=== PATIENT | male | born 1985 | race Caucasian/White ===

== ENCOUNTER 2020-07-13 14:10 | Inpatient (IN) ==
[2020-07-13] MEDS ORDERED: Isovue-370 500 ML BOTTLE IVP ONE (14:17)
[2020-07-13] MEDS ORDERED: 0.9 % Sodium Chloride 1,000 ML IVC ONE (14:18)
[2020-07-13 14:44] LABS: Basophils # 0.1 K/mcL (0.0-0.2); Basophils % 0.4 %; Eosinophils # 0.1 K/mcL (0.0-0.6); Eosinophils % 0.9 %; Hemoglobin 10.9 g/dL (12.9-16.9); Immature Granulocytes % 0.7 % (0-4); Lymphocytes # 1.8 K/mcL (0.6-4.6); Lymphocytes % 12.5 %; Mean Corpuscular Volume 81.7 fL (83.0-100.0); Mean Platelet Volume 9.3 fL (9.4-12.4); Monocytes # 1.1 K/mcL (0.0-1.3); Monocytes % 7.5 %; Neutrophils # 11.2 K/mcL (1.6-8.9); Nucleated Red Blood Cells 0.3 /100 WBC (0); Platelet Count 474 K/mcL (140-400); Red Blood Count 4.04 M/mcL (4.19-5.50); Red Cell Distribution Width 14.1 % (11.5-14.5); White Blood Count 14.3 K/mcL (4.3-11.1)
[2020-07-13 14:58] LABS: Alanine Aminotransferase 38 Units/L (7-52); Albumin 3.6 g/dL (3.5-5.7); Albumin/Globulin Ratio 1.1 (1.1-2.2); Alkaline Phosphatase 122 Units/L (34-104); Aspartate Amino Transferase 43 Units/L (13-39); BUN/Creatinine Ratio 16 (6-26); Bilirubin,Direct 0.3 mg/dL (0.0-0.2); Bilirubin,Indirect 0.4 mg/dL (0.0-1.0); Bilirubin,Total 0.7 mg/dL (0.3-1.0); Blood Urea Nitrogen 14 mg/dL (6-20); Calcium 8.9 mg/dL (8.6-10.3); Carbon Dioxide 29 mEq/L (23-29); Chloride 96 mEq/L (98-107); Globulin 3.3 g/dL (2.4-3.5); Glucose 113 mg/dL (70-105); Osmolality,Calculated 283 (280-300); Potassium 3.5 mEq/L (3.5-5.1); Sodium 136 mEq/L (136-145); Total Protein 6.9 g/dL (6.4-8.9); eGFR For African Americans > 60 (> 60); eGFR For Non-African Americans > 60 (> 60)
[2020-07-13] MEDS ORDERED: Azithromycin 500 MG in 0.9 % Sodium Chloride 250 ML IVPB ONE (15:01)
[2020-07-13 15:04] LABS: Troponin I 0.05 ng/mL (< 0.04)
[2020-07-13 15:13] LABS: Activated Partial Thrombo Time 27.6 Seconds (26.0-36.0); INR 1.4; Prothrombin Time 16.3 Seconds (9.4-12.1)
[2020-07-13] MEDS ORDERED: methocarbamoL 500 MG TABLET PO PRN (16:27)
[2020-07-13] MEDS ORDERED: MOM Conc 10 ML UD.LIQ PO PRN (16:29)
[2020-07-13] MEDS ORDERED: Mag Hydrox/Al Hydrox/Simeth 30 ML UDC PO PRN (16:29)
[2020-07-13] MEDS ORDERED: Naloxone 0.4 MG/ML INJ IVP PRN (16:29)
[2020-07-13] MEDS ORDERED: Acetaminophen 325 MG TABLET PO PRN (16:29)
[2020-07-13] MEDS ORDERED: Ondansetron 4 MG/2 ML VIAL IVP PRN (16:29)
[2020-07-13] MEDS ORDERED: methylPREDNISolone 125 MG/2 ML VIAL IVP ONE (16:37)
[2020-07-13] MEDS: Nicotine 14 MG PATCH.TD24 TD SCH (19:49)
[2020-07-13] MEDS: Gabapentin 400 MG CAPSULE PO SCH ×2 (19:50→20:30)
[2020-07-13] MEDS: risperiDONE 1 MG TABLET PO SCH (20:33)
[2020-07-13] MEDS: *HR* OxyCODONE/APAP 5/325 TABLET PO PRN (20:34)
[2020-07-13 21:43] LABS: Adenovirus Not Detected (Not Detect); Bordetella Pertussis Not Detected (Not Detect); Chlamydophila pneumoniae Not Detected (Not Detect); Coronavirus 229E Not Detected (Not Detect); Coronavirus HKU1 Not Detected (Not Detect); Coronavirus NL63 Not Detected (Not Detect); Coronavirus OC43 Not Detected (Not Detect); Human Metapneumovirus Not Detected (Not Detect); Human Rhinovirus/Enterovirus Not Detected (Not Detect); Influenza A Subtype 2009 H1 Not Detected (Not Detect); Influenza B Not Detected (Not Detect); Mycoplasma pneumoniae Not Detected (Not Detect); Parainfluenza Virus 1 Not Detected (Not Detect); Parainfluenza Virus 2 Not Detected (Not Detect); Parainfluenza Virus 3 Not Detected (Not Detect); Parainfluenza Virus 4 Not Detected (Not Detect); Respiratory Syncytial Virus Not Detected (Not Detect); SARS-CoV-2 Not Detected (Not Detect)
[2020-07-13] MEDS ORDERED: Furosemide 40 MG/4 ML VIAL IVP ONE (23:02)
[2020-07-13] MEDS: MethylPREDNISolone 40 MG/ML VIAL IVP SCH (23:28)
[2020-07-14 07:28] LABS: Basophils % 0.2 %; Hematocrit 34.8 % (37.5-50.1); Hemoglobin 11.5 g/dL (12.9-16.9); Immature Granulocytes % 1.3 % (0-4); Lymphocytes # 0.9 K/mcL (0.6-4.6); Mean Corpuscular Volume 81.7 fL (83.0-100.0); Mean Platelet Volume 9.4 fL (9.4-12.4); Monocytes # 0.3 K/mcL (0.0-1.3); Monocytes % 2.5 %; Nucleated Red Blood Cells 0.4 /100 WBC (0); Platelet Count 528 K/mcL (140-400); Red Blood Count 4.26 M/mcL (4.19-5.50); White Blood Count 11.4 K/mcL (4.3-11.1)
[2020-07-14 07:38] LABS: BUN/Creatinine Ratio 20 (6-26); Blood Urea Nitrogen 14 mg/dL (6-20); Carbon Dioxide 26 mEq/L (23-29); Chloride 98 mEq/L (98-107); Glucose 123 mg/dL (70-105); Osmolality,Calculated 284 (280-300); Potassium 4.2 mEq/L (3.5-5.1); Sodium 136 mEq/L (136-145); eGFR For African Americans > 60 (> 60); eGFR For Non-African Americans > 60 (> 60)
[2020-07-14] MEDS: FLUoxetine 20 MG CAPSULE PO SCH (08:13)
[2020-07-14] MEDS: Nicotine 14 MG PATCH.TD24 TD SCH (08:13)
[2020-07-14] MEDS: MethylPREDNISolone 40 MG/ML VIAL IVP SCH ×2 (08:14→23:56)
[2020-07-14] MEDS: risperiDONE 1 MG TABLET PO SCH ×2 (08:14→19:56)
[2020-07-14] MEDS: Gabapentin 400 MG CAPSULE PO SCH ×3 (08:14→18:13)
[2020-07-14] MEDS: atenoloL 50 MG TABLET PO SCH (08:14)
[2020-07-14] MEDS: *HR* OxyCODONE/APAP 5/325 TABLET PO PRN ×2 (08:21→15:11)
[2020-07-14] MEDS: Furosemide 20 MG/2 ML VIAL IVP SCH ×2 (11:53→18:14)
[2020-07-14] MEDS ORDERED: MethylPREDNISolone 40 MG/ML VIAL IVP SCH (12:15)
[2020-07-14] MEDS: cefTRIAXone 2,000 MG in 0.9 % Sodium Chloride Mini Bag 100 ML IVPB SCH (15:10)
[2020-07-14] MEDS ORDERED: Azithromycin 500 MG in 0.9 % Sodium Chloride 250 ML IVPB SCH (16:00)
[2020-07-14] MEDS ORDERED: Saline Nasal Spray 44 ML BOTTLE NS PRN (19:08)
[2020-07-14] MEDS: ALPRAZolam 1 MG TABLET PO PRN (19:56)
[2020-07-15] MEDS: Gabapentin 400 MG CAPSULE PO SCH ×6 (00:14→21:10)
[2020-07-15] MEDS: *HR* Enoxaparin 40 MG/0.4 ML SYRINGE SQ SCH (05:45)
[2020-07-15] MEDS: *HR* OxyCODONE/APAP 5/325 TABLET PO PRN ×3 (05:52→19:00)
[2020-07-15 08:10] LABS: D-Dimer 1641 ng/mLFEU (0-500)
[2020-07-15 08:15] LABS: BUN/Creatinine Ratio 39 (6-26); Blood Urea Nitrogen 28 mg/dL (6-20); Calcium 9.2 mg/dL (8.6-10.3); Carbon Dioxide 27 mEq/L (23-29); Chloride 100 mEq/L (98-107); Glucose 143 mg/dL (70-105); Magnesium 2.3 mg/dL (1.6-2.6); Osmolality,Calculated 292 (280-300); Phosphorous 4.7 mg/dL (2.7-4.5); Potassium 4.3 mEq/L (3.5-5.1); Sodium 137 mEq/L (136-145); eGFR For African Americans > 60 (> 60); eGFR For Non-African Americans > 60 (> 60)
[2020-07-15 08:58] LABS: Lactate Dehydrogenase 493 Units/L (140-271)
[2020-07-15 09:14] LABS: Fibrinogen 853 mg/dL (169-393)
[2020-07-15 09:16] LABS: Ferritin 313 ng/mL (20-250)
[2020-07-15] MEDS: Furosemide 20 MG/2 ML VIAL IVP SCH (09:27)
[2020-07-15] MEDS: Nicotine 14 MG PATCH.TD24 TD SCH (09:42)
[2020-07-15] MEDS: FLUoxetine 20 MG CAPSULE PO SCH (09:43)
[2020-07-15] MEDS: risperiDONE 1 MG TABLET PO SCH ×2 (09:43→21:09)
[2020-07-15] MEDS: MethylPREDNISolone 40 MG/ML VIAL IVP SCH ×2 (09:43→16:59)
[2020-07-15] MEDS: atenoloL 50 MG TABLET PO SCH (09:44)
[2020-07-15] MEDS: ALPRAZolam 1 MG TABLET PO PRN (14:59)
[2020-07-15] MEDS: cefTRIAXone 2,000 MG in 0.9 % Sodium Chloride Mini Bag 100 ML IVPB SCH (17:02)
[2020-07-16] MEDS: MethylPREDNISolone 40 MG/ML VIAL IVP SCH ×2 (00:24→07:59)
[2020-07-16] MEDS: *HR* OxyCODONE/APAP 5/325 TABLET PO PRN ×4 (03:30→22:42)
[2020-07-16] MEDS: *HR* Enoxaparin 40 MG/0.4 ML SYRINGE SQ SCH (05:52)
[2020-07-16 07:50] LABS: Hematocrit 39.4 % (37.5-50.1); Hemoglobin 12.7 g/dL (12.9-16.9); Mean Corpuscular HGB Conc 32.2 g/dL (31.6-35.5); Mean Corpuscular Volume 83.8 fL (83.0-100.0); Mean Platelet Volume 9.4 fL (9.4-12.4); Platelet Count 661 K/mcL (140-400); White Blood Count 16.7 K/mcL (4.3-11.1)
[2020-07-16] MEDS: FLUoxetine 20 MG CAPSULE PO SCH (07:56)
[2020-07-16] MEDS: Furosemide 20 MG TABLET PO SCH (07:56)
[2020-07-16] MEDS: ALPRAZolam 1 MG TABLET PO PRN ×3 (07:56→22:27)
[2020-07-16] MEDS: risperiDONE 1 MG TABLET PO SCH ×2 (07:56→22:27)
[2020-07-16] MEDS: Gabapentin 400 MG CAPSULE PO SCH ×4 (07:56→22:26)
[2020-07-16] MEDS: atenoloL 50 MG TABLET PO SCH (07:57)
[2020-07-16] MEDS: Nicotine 14 MG PATCH.TD24 TD SCH (07:57)
[2020-07-16 08:09] LABS: BUN/Creatinine Ratio 35 (6-26); Blood Urea Nitrogen 26 mg/dL (6-20); Carbon Dioxide 25 mEq/L (23-29); Chloride 101 mEq/L (98-107); Glucose 127 mg/dL (70-105); Magnesium 2.1 mg/dL (1.6-2.6); Osmolality,Calculated 288 (280-300); Potassium 4.6 mEq/L (3.5-5.1); Sodium 136 mEq/L (136-145); eGFR For African Americans > 60 (> 60); eGFR For Non-African Americans > 60 (> 60)
[2020-07-16] MEDS: cefTRIAXone 2,000 MG in 0.9 % Sodium Chloride Mini Bag 100 ML IVPB SCH (14:11)
[2020-07-17 06:44] VITALS: BP 108/72
[2020-07-17] MEDS: *HR* Enoxaparin 40 MG/0.4 ML SYRINGE SQ SCH (06:45)
[2020-07-17] MEDS: *HR* OxyCODONE/APAP 5/325 TABLET PO PRN (06:52)
[2020-07-17] MEDS ORDERED: predniSONE 20 MG TABLET PO SCH (09:00)
[2020-07-17] MEDS: risperiDONE 1 MG TABLET PO SCH (09:44)
[2020-07-17] MEDS: Gabapentin 400 MG CAPSULE PO SCH (09:44)
[2020-07-17] MEDS: Furosemide 20 MG TABLET PO SCH (09:44)
[2020-07-17] MEDS: ALPRAZolam 1 MG TABLET PO PRN (09:44)
[2020-07-17] MEDS: FLUoxetine 20 MG CAPSULE PO SCH (09:44)
[2020-07-17] MEDS: atenoloL 50 MG TABLET PO SCH (09:45)
[2020-07-17] MEDS: Nicotine 14 MG PATCH.TD24 TD SCH (09:50)
== END 2020-07-17 10:46 | disposition home or self-care (01) | DRG 139 ==
LOC: EMEROOPIK 14:10 → INPPIK 14:10
PROVIDERS: ADMIT Family Medicine; ATTEND Family Medicine